=== PATIENT | female | born 1970 | race African-American/Black ===

== ENCOUNTER 2024-07-23 00:18 | Emergency (ER) | payer MEDICARE ==
[~2024-07-23] VITALS: Ht 172.7 cm; Wt 90.7 kg
[2024-07-23 00:25] VITALS: PULSE 76; RESP 16; TEMP 98.5; O2SAT 98
[2024-07-23] MEDS ORDERED: BACTRIM DS TAB1 EACH PO (01:03)
[2024-08-02] MEDS ORDERED: ONDANSETRON ODT4 MG PO (21:27)
== END 2024-07-23 01:10 | disposition home or self-care (01) ==
LOC: FSED 00:21
DX: L02.416 Cutaneous abscess of left lower limb (principal); I10 Essential (primary) hypertension; E78.5 Hyperlipidemia, unspecified; E03.9 Hypothyroidism, unspecified; Z85.43 Personal history of malignant neoplasm of ovary; Z85.850 Personal history of malignant neoplasm of thyroid; F17.210 Nicotine dependence, cigarettes, uncomplicated
CPT/HCPCS: 10060; 27301; 99283

== ENCOUNTER 2024-08-14 18:06 | Emergency (ER) | payer MEDICARE ==
[~2024-08-14] VITALS: Ht 172.7 cm; Wt 92.1 kg
[~2024-08-14 18:06] MED LIST: BACTRIM DS TAB1 EACH PO; ONDANSETRON ODT4 MG PO
[2024-08-14 19:00] VITALS: PULSE 70; RESP 18; TEMP 98.3
[2024-08-14] MEDS ORDERED: POTASSIUM CHLORIDE 10MEQ EA PO ONE (20:00)
[2024-08-14] MEDS: POTASSIUM CHLORIDE 20 MEQ TAB CR PO STA (20:56)
[2024-08-14] MEDS ORDERED: BACTRIM DS TAB1 EACH PO (22:14)
[2024-08-14 22:25] VITALS: BP 125/75; PULSE 68; RESP 18; TEMP 98; O2SAT 97
== END 2024-08-14 22:25 | disposition home or self-care (01) ==
LOC: FSED 18:43
DX: I88.9 Nonspecific lymphadenitis, unspecified (principal); N39.0 Urinary tract infection, site not specified; E87.6 Hypokalemia; I10 Essential (primary) hypertension; E78.5 Hyperlipidemia, unspecified; E03.9 Hypothyroidism, unspecified; Z85.3 Personal history of malignant neoplasm of breast; Z85.850 Personal history of malignant neoplasm of thyroid; Z85.43 Personal history of malignant neoplasm of ovary
CPT/HCPCS: 80048; 80076; 80307; 81003; 85025; 93971; 99284; J0696

== ENCOUNTER 2024-09-14 06:32 | Emergency (ER) | payer MEDICARE ==
[~2024-09-14] VITALS: Ht 172.7 cm; Wt 92.1 kg
[2024-09-14 06:50] VITALS: PULSE 74; RESP 18; TEMP 97.6; O2SAT 99
[2024-09-14] MEDS: PREDNISONE 20 MG TAB PO ONE (07:42)
[2024-09-14] MEDS ORDERED: PREDNISONE50 MG PO (07:46)
[2024-09-14] MEDS ORDERED: CYCLOBENZAPRINE10 MG PO (07:47)
== END 2024-09-14 07:57 | disposition home or self-care (01) ==
LOC: FSED 06:45
DX: M54.16 Radiculopathy, lumbar region (principal); M77.8 Other enthesopathies, not elsewhere classified; I10 Essential (primary) hypertension; E78.5 Hyperlipidemia, unspecified; E03.9 Hypothyroidism, unspecified; D68.9 Coagulation defect, unspecified; I48.91 Unspecified atrial fibrillation; F17.210 Nicotine dependence, cigarettes, uncomplicated; Z85.3 Personal history of malignant neoplasm of breast; Z85.850 Personal history of malignant neoplasm of thyroid; Z85.43 Personal history of malignant neoplasm of ovary
CPT/HCPCS: 99283; J7512

== ENCOUNTER 2024-12-01 10:23 | Emergency (ER) | payer MEDICARE ==
[~2024-12-01] VITALS: Ht 172.7 cm; Wt 91.6 kg
[~2024-12-01 10:23] MED LIST changes: +CYCLOBENZAPRINE10 MG PO; +PREDNISONE50 MG PO
[2024-12-01] MEDS ORDERED: HYDROCHLOROTHIA25 MG PO (10:53)
[2024-12-01] MEDS ORDERED: HYDROCODON-ACE1 EAC9 (10:53)
[2024-12-01] MEDS ORDERED: ELIQUIS5 MG PO (10:53)
[2024-12-01] MEDS ORDERED: VASOTEC10 M1 PO (10:53)
[2024-12-01] MEDS ORDERED: METOPROLOL SUCC50 MG PO (10:53)
[2024-12-01] MEDS ORDERED: LEVOTHYROXINE137 MCG (10:53)
[2024-12-01] MEDS ORDERED: ROSUVASTATIN CA20 MG (10:53)
[2024-12-01] MEDS: TRIMETHOPRIM/SULFAMETHOXAZOLE 160-800 MG TAB PO ONE (12:18)
[2024-12-01] MEDS ORDERED: BACTRIM DS TAB1 EACH PO (12:25)
[2024-12-01 12:35] VITALS: PULSE 65; RESP 16; TEMP 97.7; O2SAT 98
== END 2024-12-01 12:35 | disposition home or self-care (01) ==
LOC: FSED 10:29
DX: L02.415 Cutaneous abscess of right lower limb (principal); F17.210 Nicotine dependence, cigarettes, uncomplicated; I10 Essential (primary) hypertension; I48.91 Unspecified atrial fibrillation; E78.5 Hyperlipidemia, unspecified; E03.9 Hypothyroidism, unspecified; M54.9 Dorsalgia, unspecified; G89.29 Other chronic pain; Z85.43 Personal history of malignant neoplasm of ovary; Z85.3 Personal history of malignant neoplasm of breast; Z85.850 Personal history of malignant neoplasm of thyroid
CPT/HCPCS: 10060; 99284

== ENCOUNTER 2024-12-12 09:45 | Emergency (ER) | payer MEDICARE ==
[~2024-12-12] VITALS: Ht 172.7 cm; Wt 90.4 kg
[~2024-12-12 09:45] MED LIST changes: +ELIQUIS5 MG PO; +HYDROCHLOROTHIA25 MG PO; +HYDROCODON-ACE1 EAC9; +LEVOTHYROXINE137 MCG; +METOPROLOL SUCC50 MG PO; +ROSUVASTATIN CA20 MG; +VASOTEC10 M1 PO
[2024-12-12] MEDS ORDERED: CORICIDIN HBP1 EAC3 PO (10:20)
[2024-12-12] MEDS ORDERED: TAMIFLU75 MG PO (10:20)
[2024-12-12 10:26] VITALS: PULSE 77; RESP 18; TEMP 97.6; O2SAT 97
== END 2024-12-12 10:26 | disposition home or self-care (01) ==
LOC: FSED 09:51
DX: R05.9 Cough, unspecified (principal); J10.1 Influenza due to other identified influenza virus with other respiratory manifestations; R51.9 Headache, unspecified; I10 Essential (primary) hypertension; E78.5 Hyperlipidemia, unspecified; I48.91 Unspecified atrial fibrillation; E03.9 Hypothyroidism, unspecified; M54.9 Dorsalgia, unspecified; G89.29 Other chronic pain; Z11.52 Encounter for screening for COVID-19; Z85.43 Personal history of malignant neoplasm of ovary; Z85.3 Personal history of malignant neoplasm of breast; Z85.850 Personal history of malignant neoplasm of thyroid
CPT/HCPCS: 0223U; 83518; 87400; 99283

== ENCOUNTER 2025-01-07 18:35 | Emergency (ER) | payer MEDICARE ==
[~2025-01-07 18:35] MED LIST changes: +CORICIDIN HBP1 EAC3 PO; +TAMIFLU75 MG PO
== END 2025-01-07 18:55 | disposition left against medical advice (07) ==
LOC: FSED 18:38
DX: M54.2 Cervicalgia (principal)

== ENCOUNTER 2025-01-13 17:11 | Emergency (ER) | payer MEDICARE ==
[~2025-01-13] VITALS: Ht 172.7 cm; Wt 87.7 kg
[2025-01-13 17:15] VITALS: PULSE 100; RESP 20; TEMP 97.5; O2SAT 96
== END 2025-01-13 18:00 | disposition home or self-care (01) ==
LOC: FSED 17:19
DX: L03.115 Cellulitis of right lower limb (principal); I10 Essential (primary) hypertension; I48.91 Unspecified atrial fibrillation; E78.5 Hyperlipidemia, unspecified; E03.9 Hypothyroidism, unspecified; M54.9 Dorsalgia, unspecified; G89.29 Other chronic pain; Z85.43 Personal history of malignant neoplasm of ovary; Z85.850 Personal history of malignant neoplasm of thyroid; Z85.3 Personal history of malignant neoplasm of breast
CPT/HCPCS: 99284

== ENCOUNTER 2025-03-03 10:37 | Emergency (ER) | payer MEDICARE ==
[~2025-03-03] VITALS: Ht 172.7 cm; Wt 89.4 kg
[2025-03-03] MEDS ORDERED: CLINDAMYCIN HC150 MG PO (11:51)
[2025-03-03 11:54] VITALS: PULSE 65; RESP 20; TEMP 97.4; O2SAT 97
== END 2025-03-03 11:57 | disposition home or self-care (01) ==
LOC: FSED 10:45
DX: L02.415 Cutaneous abscess of right lower limb (principal); I10 Essential (primary) hypertension; I48.91 Unspecified atrial fibrillation; E03.9 Hypothyroidism, unspecified; E78.5 Hyperlipidemia, unspecified; M54.9 Dorsalgia, unspecified; G89.29 Other chronic pain; Z85.43 Personal history of malignant neoplasm of ovary; Z85.850 Personal history of malignant neoplasm of thyroid; Z85.3 Personal history of malignant neoplasm of breast
CPT/HCPCS: 99284

== ENCOUNTER 2025-05-15 17:40 | Emergency (ER) | payer MEDICARE ==
[~2025-05-15] VITALS: Ht 172.7 cm; Wt 91.8 kg
[~2025-05-15 17:40] MED LIST changes: +CLINDAMYCIN HC150 MG PO
[2025-05-15 17:44] VITALS: TEMP 99
[2025-05-15] MEDS: SODIUM CHLORIDE 0.9% 500ML 500 ML IV STA (18:36)
[2025-05-15] MEDS: ONDANSETRON HCL INJ 2MG/ML 2ML 2 MG/ML VIAL IV ONE (18:37)
[2025-05-15] MEDS: KETOROLAC TROMETHAMINE 30 MG/ML VIAL IV STA (18:38)
[2025-05-15] MEDS: DEXAMETHASONE SOD PHOS INJ 4 MG/ML SDV IV ONE (18:38)
[2025-05-15] MEDS: LABETALOL HCL 5 MG/ML 20ML VIAL IV STA (18:39)
[2025-05-15] MEDS: KETOROLAC TROMETHAMINE 30 MG/ML VIAL IV ONE (18:41)
[2025-05-15 19:02] VITALS: PULSE 75; RESP 16
[2025-05-15] MEDS ORDERED: BUTALB-ACETAMI1 EAC3 PO (19:28)
[2025-05-15] MEDS ORDERED: ONDANSETRON ODT4 MG PO (19:28)
[2025-05-15] MEDS ORDERED: BUTALB-ACETAMI1 EACH PO (19:29)
[2025-05-15] MEDS: HYDRALAZINE HCL 20 MG/ML VIAL IV ONE (19:44)
[2025-05-15 19:45] VITALS: BP 169/85; PULSE 85; RESP 18; O2SAT 99
== END 2025-05-15 19:34 | disposition home or self-care (01) ==
LOC: FSED 17:45
DX: I16.0 Hypertensive urgency (principal); R11.2 Nausea with vomiting, unspecified; E87.6 Hypokalemia; R51.9 Headache, unspecified; R09.81 Nasal congestion; I10 Essential (primary) hypertension; I48.91 Unspecified atrial fibrillation; E03.9 Hypothyroidism, unspecified; E78.5 Hyperlipidemia, unspecified; K21.9 Gastro-esophageal reflux disease without esophagitis; M54.9 Dorsalgia, unspecified; G89.29 Other chronic pain; Z85.43 Personal history of malignant neoplasm of ovary; Z85.850 Personal history of malignant neoplasm of thyroid; Z85.3 Personal history of malignant neoplasm of breast; F17.210 Nicotine dependence, cigarettes, uncomplicated
CPT/HCPCS: 70450; 70486; 80053; 84484; 85025; 93005; 96374; 96375; 99284; J1100; J1885; J2405; J3490; J7040

== ENCOUNTER 2025-06-09 05:06 | Emergency (ER) | payer MEDICARE ==
[~2025-06-09] VITALS: Ht 172.7 cm; Wt 88.0 kg
[~2025-06-09 05:06] MED LIST changes: +BUTALB-ACETAMI1 EAC3 PO; +BUTALB-ACETAMI1 EACH PO
[2025-06-09 05:28] VITALS: PULSE 62; RESP 17; TEMP 97.6
[2025-06-09 07:05] VITALS: BP 141/83; PULSE 62; RESP 17; TEMP 97.6; O2SAT 99
== END 2025-06-09 07:09 | disposition home or self-care (01) ==
LOC: FSED 05:16
DX: M25.531 Pain in right wrist (principal); X50.3XXA Overexertion from repetitive movements, initial encounter; Y92.89 Other specified places as the place of occurrence of the external cause; I10 Essential (primary) hypertension; E78.5 Hyperlipidemia, unspecified; I48.91 Unspecified atrial fibrillation; E03.9 Hypothyroidism, unspecified; K21.9 Gastro-esophageal reflux disease without esophagitis; M54.9 Dorsalgia, unspecified; G89.29 Other chronic pain; Z85.43 Personal history of malignant neoplasm of ovary; Z85.850 Personal history of malignant neoplasm of thyroid; Z85.3 Personal history of malignant neoplasm of breast
CPT/HCPCS: 99284